=== PATIENT | male | born 1955 | race Caucasian/White ===

== ENCOUNTER 2018-09-01 08:58 | Day surgery (SDC) | payer OTHER ==
[~2018-09-01] VITALS: Ht 185.4 cm; Wt 96.4 kg
[~2018-09-01 08:58] MED LIST: ACID REDUCER 1150 MG PO; ATORVASTATIN CA10 MG PO; Aspirin EC81 MG PO
== END 2018-09-01 11:18 | disposition home or self-care (01) ==
LOC: ORSCSDS 08:58
PROVIDERS: Student in an Organized Health Care Education/Training Program
PROC: 0DB58ZX Excision of Esophagus, Via Natural or Artificial Opening Endoscopic, Diagnostic (ICD-10-PCS; principal; 2018-09-01 10:15)
DX: R13.10 Dysphagia, unspecified (principal); K21.9 Gastro-esophageal reflux disease without esophagitis; R12 Heartburn; K22.2 Esophageal obstruction; K44.9 Diaphragmatic hernia without obstruction or gangrene; K22.8 Other specified diseases of esophagus; I10 Essential (primary) hypertension; Z79.899 Other long term (current) drug therapy
CPT/HCPCS: 88305; J2250; J2405; J2704; J7120